=== PATIENT | male | born 1955 | race Caucasian/White ===

== ENCOUNTER 2017-01-25 19:37 | Emergency (ER) | payer OTHER ==
[~2017-01-25 19:37] MED LIST: Sodium Chloride 0.9% 1,000 ML BAG ONE
[2017-01-25] MEDS ORDERED: Lorazepam 2 MG/ML VIAL ONE (19:54)
[2017-01-25] MEDS ORDERED: Ondansetron HCl/PF 4 MG/2 ML Vial ONE (19:55)
[2017-01-25] MEDS ORDERED: Famotidine In NaCl 20 mg/50 ml Premix Bag ONE (19:55)
[2017-01-25] MEDS ORDERED: Ketorolac Tromethamine 30 MG/ML VIAL ONE (19:55)
[2017-01-25] MEDS ORDERED: Famotidine 20 MG TAB ONE (19:55)
--- NOTE | 2017-01-25 20:16 | RAD ---
SINGLE VIEW OF THE CHEST 01/25/17 COMPARISON: None. HISTORY: Dyspnea. FINDINGS: Single view of the chest shows a normal sized cardiomediastinal silhouette. There is no evidence of consolidation, mass, or pleural effusion. The bones are unremarkable. IMPRESSION: No evidence of acute cardiopulmonary disease. POS: [facility]
[2017-01-25 20:21] LABS: Hemoglobin 14.6 g/dL (14.0-18.0); Mean Corpuscular HGB CONC 35.3 g/dL (32.0-36.0); Mean Corpuscular Hemoglobin 34.6 pg (27.0-31.0); Platelet Count 114 thou/uL (130-400); RBC Distribution Width 11.6 % (11.5-14.5); Red Blood Cell (RBC) Count 4.23 mill/uL (4.70-6.10)
[2017-01-25 20:22] LABS: #Lymphocytes 0.8 thou/uL (1.20-3.40); #Monocytes 0.5 thou/uL (0.11-0.59); #Neutrophils 6.6 thou/uL (1.40-6.50); %Basophils 0.6 % (0.0-1.0); %Eosinophils 0.2 % (0.0-10.0); %Lymphocytes 10.3 % (21.0-51.0); %Monocytes 6.1 % (0.0-10.0); %Neutrophils 82.9 % (42.0-75.0)
[2017-01-25 20:32] LABS: PLT Morphology Comment Appears Adequate; RBC Morphology Normal
[2017-01-25 20:33] LABS: Anion Gap 19 mmol/L (10-20); BUN (Urea Nitrogen) 12 mg/dL (8.4-25.7); Calcium 9.5 mg/dL (7.8-10.44); Carbon Dioxide 18 mmol/L (22-29); Chloride 106 mmol/L (98-107); Glucose 152 mg/dL (70-105); Potassium 3.7 mmol/L (3.5-5.1); Sodium 139 mmol/L (136-145)
[2017-01-25 20:38] LABS: CKMB 1.3 ng/mL (0-6.6); Troponin I Less than 0.010 ng/mL (< 0.028)
[2017-01-25 21:17] LABS: Calc. Creatinine Clearance 0 mL/min (70-130); Estimated GFR-MDRD 85
== END 2017-01-25 21:05 | disposition home or self-care (01) ==
LOC: MADERS 19:37
DX: R11.2 Nausea with vomiting, unspecified (principal); I10 Essential (primary) hypertension
CPT/HCPCS: 36416; 71010; 80048; 82553; 83880; 84484; 85025; 85379; 93005; 96365; 96375; J1885; J2060; J2405; J7050

== ENCOUNTER 2018-12-24 05:03 | Emergency (ER) | payer OTHER, SELFPAY ==
[2018-12-24] MEDS ORDERED: Ondansetron PF 4 MG/2 ML Vial ONE (05:28)
[2018-12-24] MEDS ORDERED: Fentanyl 100 MCG/2 ML VIAL ONE (05:28)
[2018-12-24] MEDS ORDERED: Sodium Chloride 0.9% 1,000 ML ONE (05:30)
[2018-12-24 05:51] LABS: ALT (SGPT) 22 U/L (8-55); AST (SGOT) 16 U/L (5-34); Albumin 4.4 g/dL (3.4-4.8); Alkaline Phosphatase 89 U/L (40-150); Anion Gap 17 mmol/L (10-20); BUN (Urea Nitrogen) 11 mg/dL (8.4-25.7); Bilirubin, Total 2.1 mg/dL (0.2-1.2); Calc. Creatinine Clearance 0 mL/min (70-130); Calcium 9.4 mg/dL (7.8-10.44); Carbon Dioxide 21 mmol/L (23-31); Chloride 99 mmol/L (98-107); Estimated GFR-MDRD 79; Globulin 2.4 g/dL (2.4-3.5); Lipase 12 U/L (8-78); Potassium 3.4 mmol/L (3.5-5.1); Protein, Total 6.8 g/dL (5.8-8.1); Sodium 134 mmol/L (136-145)
[2018-12-24 05:52] LABS: Glucose 198 mg/dL (80-115)
[2018-12-24 06:02] LABS: Hemoglobin 15.3 g/dL (14.0-18.0); Red Blood Cell (RBC) Count 4.52 mill/uL (4.70-6.10); White Blood Cell (WBC) Count 7.8 thou/uL (4.8-10.8)
[2018-12-24 06:03] LABS: #Monocytes 0.5 thou/uL (0.11-0.59); #Neutrophils 6.7 thou/uL (1.40-6.50); %Basophils 0.4 % (0.0-1.0); %Eosinophils 0.1 % (0.0-10.0); %Monocytes 5.9 % (0.0-10.0); %Neutrophils 85.6 % (42.0-75.0); Mean Corpuscular Hemoglobin 33.8 pg (27.0-31.0); Mean Platelet Volume 5.4 fL (7.4-10.4); Platelet Count 111 thou/uL (130-400); RBC Distribution Width 10.8 % (11.5-14.5)
[2018-12-24 06:04] LABS: MDiff Complete? YES
[2018-12-24 06:05] LABS: Platelet Morphology Comment Appears Decreased
[2018-12-24] MEDS ORDERED: Promethazine HCl 25 MG/ML VIAL ONE (06:08)
--- NOTE | 2018-12-24 08:02 | RAD ---
SINGLE VIEW CHEST TWO VIEWS ABDOMEN: Comparison: None. History: Abdominal pain and bloating. FINDINGS: Spine and upright views of the abdomen and upright views of the chest shows an nonspecific, nonobstru cted bowel gas pattern. No free air or air fluid level are seen in the upright examination. The cardiomediastinal silhouette is normal in size. There is no evidence of consolidation, mass, or p leural effusion. IMPRESSION: 1. No evidence of bowel obstruction. 2. No evidence of acute cardiopulmonary disease. POS: [facility]
--- NOTE | 2018-12-24 08:28 | CT ---
CT OF THE ABDOMEN AND PELVIS WITHOUT CONTRAST: Date: 12/24/18 INDICATION: Abdominal pain and bloating. COMPARISON: None. FINDINGS: The appendiceal tip is dilated, measuring 1.5 cm, with surrounding periappendiceal inflammatory stran ding. The dilated appendiceal tip does abut the right lateral margin of the sigmoid colon. No drainab le fluid collection is evident. There are moderate calcifications involving the abdominopelvic vasculature. Exophytic hypodensities off the inferior pole of the kidneys are difficult to characterize due to mot ion artifact. The lesion involving the lower pole of the left kidney measures approximately 1.6 cm in it, consistent with a cyst. The lesion within the lower pole of the right kidney is larger, but diff icult to fully measure and characterize due to motion artifact. There are other tiny hypodensities in volving both kidneys, as well as the right hepatic lobes are difficult to characterize due to their s ize. There is a small hiatal hernia. The pancreas, adrenal glands and spleen appear within normal limits. There is scattered degenerative change. There is osteonecrosis involving the right femoral head witho ut evidence of collapse. There is advanced osteoarthritic change of the left hip. IMPRESSION: 1. Findings of tip appendicitis. 2. Suspected hepatic and renal hypodensities. These are incompletely characterized on current scan. Recommend consideration for a follow-up complete abdominal ultrasound for additional characterization . 3. Small hiatal hernia. 4. 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 5. Advanced left hip osteoarthrosis. Findings called to Dr. Romero at 0653 hours on 12/24/18. CODE CR. POS:
[2018-12-24] MEDS ORDERED: Iopamidol 370 76% 100 ML VIAL ONE (09:17)
== END 2018-12-24 07:28 | disposition short-term general hospital (02) ==
LOC: MADERS 05:03
DX: K35.80 Unspecified acute appendicitis (principal); I10 Essential (primary) hypertension; Z79.899 Other long term (current) drug therapy
CPT/HCPCS: 74022; 74177; 80053; 83690; 84484; 85025; 93005; 94760; 96361; 96365; 96375; J2405; J2550; J3010; J7050; Q9967

== ENCOUNTER 2022-12-11 12:15 | Outpatient (CLI) | payer MEDICARE ==
[~2022-12-11 12:15] MED LIST changes: +Iopamidol 370 76% 100 ML VIAL ONE; -Sodium Chloride 0.9% 1,000 ML BAG ONE
== END 2022-12-11 12:16 | disposition home or self-care (01) ==
LOC: MADCT 12:15
PROVIDERS: ATTEND Specialist
DX: M79.604 Pain in right leg (principal); T14.8XXS Other injury of unspecified body region, sequela; D69.6 Thrombocytopenia, unspecified; M25.461 Effusion, right knee; Z96.651 Presence of right artificial knee joint
CPT/HCPCS: 36415; 82565; Q9967

== ENCOUNTER 2024-04-13 10:20 | Emergency (ER) | payer MEDICARE, OTHER ==
[2024-04-13] MEDS ORDERED: Bacitracin 1 PK ONE (10:58)
[2024-04-13] MEDS ORDERED: Clindamycin/D5W 600 mg/50 ml Premix Bag ONE (10:59)
[2024-04-13] MEDS ORDERED: Boostrix 0.5 ML (Tdap) VIAL (>/=7 yrs of age) ONE (11:00)
[2024-04-13 11:34] LABS: ALT (SGPT) 18 U/L (8-55); AST (SGOT) 14 U/L (5-34); Albumin 4.3 g/dL (3.4-4.8); Alkaline Phosphatase 91 U/L (40-110); Anion Gap 12 mmol/L (10-20); BUN (Urea Nitrogen) 11 mg/dL (8.4-25.7); Bilirubin, Total 1.8 mg/dL (0.2-1.2); Calc. Creatinine Clearance 0 mL/min (70-130); Calcium 9.3 mg/dL (7.8-10.44); Carbon Dioxide 23 mmol/L (23-31); Chloride 109 mmol/L (98-107); Estimated GFR 97; Globulin 2.4 g/dL (2.4-3.5); Glucose 185 mg/dL (80-115); Potassium 3.6 mmol/L (3.5-5.1); Protein, Total 6.7 g/dL (5.8-8.1); Sodium 140 mmol/L (136-145)
[2024-04-13 11:44] LABS: #Eosinphils 0.1 thou/uL (0.0-0.7); #Lymphocytes 1.3 thou/uL (1.20-3.40); #Monocytes 0.4 thou/uL (0.11-0.59); #Neutrophils 5.2 thou/uL (1.40-6.50); %Basophils 0.6 % (0.0-1.0); %Lymphocytes 18.9 % (21.0-51.0); %Monocytes 6.2 % (0.0-10.0); %Neutrophils 73.3 % (42.0-75.0); Hematocrit 46.5 % (42.0-52.0); Hemoglobin 15.1 g/dL (14.0-18.0); Mean Corpuscular HGB CONC 32.5 g/dL (32.0-36.0); Mean Corpuscular Hemoglobin 30.7 pg (27.0-31.0); Mean Corpuscular Volume 94.6 fl (78.0-98.0); Mean Platelet Volume 5.6 fL (7.4-10.4); Platelet Count 86 10x3/uL (130-400); RBC Distribution Width 12.2 % (11.5-14.5); Red Blood Cell (RBC) Count 4.91 mill/uL (4.70-6.10); White Blood Cell (WBC) Count 7.1 10x3/uL (4.8-10.8)
[2024-04-13 11:51] LABS: MDiff Complete? YES
[2024-04-13 11:52] LABS: Anisocytosis SLIGHT = 6-15 cells (100X) (0-5/hpf); Platelet Adequacy Comment Appears Decreased
== END 2024-04-13 12:20 | disposition home or self-care (01) ==
LOC: MADERS 10:20
DX: L03.115 Cellulitis of right lower limb (principal); S90.811A Abrasion, right foot, initial encounter; I10 Essential (primary) hypertension; E11.9 Type 2 diabetes mellitus without complications; Z23 Encounter for immunization; Z87.891 Personal history of nicotine dependence; Z79.899 Other long term (current) drug therapy
CPT/HCPCS: 80053; 85025; 90471; 90715; 96365; J3490